=== PATIENT | female | born 1995 | race Hispanic/Latino ===

== ENCOUNTER 2018-04-18 19:49 | Emergency (ER) | payer BC ==
[2018-04-18] MEDS ORDERED: ACETAMINOPHEN 325 MG TAB ONE (20:41)
[2018-04-18 21:00] LABS: APPEARANCE,URINE Cloudy (CLEAR); BILIRUBIN,URINE Negative (NEGATIVE); COLOR,URINE Yellow (YELLOW); GLUCOSE, URINE (UA) Negative (NEGATIVE); KETONES,URINE 15 mg/dL (NEGATIVE); LEUKOCYTE ESTERASE ,URINE Small (NEGATIVE); NITRATE,URINE Negative (NEGATIVE); OCCULT BLOOD,URINE Negative (NEGATIVE); PH,URINE 6.5 (5.0-8.0); PROTEIN,URINE Trace (NEGATIVE)
[2018-04-18 21:01] LABS: RAPID GROUP A STREP NEGATIVE (NEGATIVE)
[2018-04-18 21:03] LABS: HCG,QUAL RESULT NEGATIVE (NEGATIVE)
[2018-04-18 21:07] LABS: BACTERIA,URINE Moderate /HPF (None Seen); MUCUS,URINE Few LPF (None Seen); RBC,URINE 0-1 /HPF (0-1); SQUAMOUS EPITHELIAL CELL,UR Moderate /HPF (0-2)
[2018-04-18 21:44] LABS: BASOPHILS % (AUTO) 0.5 % (0.0-5.0); HEMATOCRIT 41.9 % (36-48); LYMPHOCYTES % (AUTO) 17.5 % (21.0-51.0); MEAN CORPUSCULAR HEMOGLOBIN 30.8 pg (27.0-33.0); MEAN CORPUSCULAR HGB CONC 33.7 g/dL (32.0-36.0); MEAN CORPUSCULAR VOLUME 91.5 fL (80-100); MONOCYTES % (AUTO) 9.8 % (3.0-13.0); NEUTROPHILS % (AUTO) 72.2 % (40.0-77.0); PLATELET COUNT (AUTO) 210 K/uL (130-400); RED BLOOD CELL COUNT(AUTO) 4.58 MIL/uL (4.00-5.50); RED CELL DISTRIBUTION WIDTH 13.4 % (11.0-15.5); WHITE BLOOD COUNT (AUTO) 7.7 K/uL (4.8-10.8)
[2018-04-18 21:52] LABS: CREATININE 0.9 mg/dL (0.5-1.5); POTASSIUM 3.3 mmol/L (3.5-5.1)
[2018-04-18 23:24] LABS: APPEARANCE,URINE Clear (CLEAR); BILIRUBIN,URINE Negative (NEGATIVE); COLOR,URINE Yellow (YELLOW); GLUCOSE, URINE (UA) Negative (NEGATIVE); KETONES,URINE 15 mg/dL (NEGATIVE); LEUKOCYTE ESTERASE ,URINE Negative (NEGATIVE); NITRATE,URINE Negative (NEGATIVE); OCCULT BLOOD,URINE Negative (NEGATIVE); PH,URINE 6.5 (5.0-8.0); PROTEIN,URINE Negative (NEGATIVE)
== END 2018-04-18 23:53 | disposition home or self-care (01) ==
LOC: EDH 19:49
DX: J11.1 Influenza due to unidentified influenza virus with other respiratory manifestations (principal)
CPT/HCPCS: 36415; 80048; 81001; 81003; 81025; 85025; 86308; 87804; 87880

== ENCOUNTER 2022-09-28 22:37 | Emergency (ER) | payer BC, MEDICAID ==
[~2022-09-28] VITALS: Ht 180.3 cm; Wt 121.6 kg
[~2022-09-28 22:37] MED LIST: PREN-67 PO
[2022-09-29 00:21] VITALS: BP 129/70; PULSE 63; RESP 18; O2SAT 100
== END 2022-09-29 00:23 | disposition home or self-care (01) ==
LOC: EDH 22:37
DX: S89.92XA Unspecified injury of left lower leg, initial encounter (principal); W18.39XA Other fall on same level, initial encounter; Y93.89 Activity, other specified; Y92.89 Other specified places as the place of occurrence of the external cause; Y99.8 Other external cause status
CPT/HCPCS: 29505; 73564

== ENCOUNTER → 2022-10-21 | Outpatient (CLI) | payer BC, MEDICAID, SELFPAY | END | disposition home or self-care (01) | LOC: RAH 10:54 | PROVIDERS: ATTEND Family Medicine | DX: S80.02XD Contusion of left knee, subsequent encounter (principal); J90 Pleural effusion, not elsewhere classified; M25.462 Effusion, left knee; X58.XXXD Exposure to other specified factors, subsequent encounter | CPT/HCPCS: 73721 ==